=== PATIENT | male | born 1985 | race Two or more races ===

== ENCOUNTER 2022-11-03 19:50 | Emergency (ER) | payer SELFPAY ==
[~2022-11-03] VITALS: Ht 172.7 cm; Wt 68.0 kg
[2022-11-03] MEDS ORDERED: LIDOCAINE HCL 2% 20 ML VIAL TP ONE (20:15)
[2022-11-03] MEDS ORDERED: ONDANSETRON HCL 4 MG TABLET PO ONE (20:15)
[2022-11-03] MEDS ORDERED: TDAP DIPH,PERTUSS,TET VAC/PF 0.5 ML DISP.SYRIN IM ONE ×2 (20:15→20:29)
[2022-11-03] MEDS ORDERED: HYDROMORPHONE 1 MG/1 ML DISP.SYRIN IM ONE (20:15)
[2022-11-03] MEDS ORDERED: LIDOCAINE HCL 2% 20 ML VIAL ONE (20:28)
[2022-11-03] MEDS ORDERED: ONDANSETRON HCL 4 MG TABLET ONE (20:29)
[2022-11-03] MEDS ORDERED: HYDROMORPHONE 2 MG/1 ML DISP.SYRIN ONE (20:29)
[2022-11-03] MEDS ORDERED: HYDR-3980 PO (20:55)
[2022-11-03] MEDS ORDERED: SILVER NITRATE APPLICATOR STICK EACH TP ONE ×2 (21:00→21:17)
[2022-11-03 21:59] VITALS: BP 140/80; O2SAT 97
== END 2022-11-03 21:50 | disposition home or self-care (01) ==
LOC: ER 19:50
DX: S92.322A Displaced fracture of second metatarsal bone, left foot, initial encounter for closed fracture (principal); S92.332A Displaced fracture of third metatarsal bone, left foot, initial encounter for closed fracture; S92.342A Displaced fracture of fourth metatarsal bone, left foot, initial encounter for closed fracture; S91.312A Laceration without foreign body, left foot, initial encounter; Z79.899 Other long term (current) drug therapy; W22.8XXA Striking against or struck by other objects, initial encounter; Y93.89 Activity, other specified; Y92.89 Other specified places as the place of occurrence of the external cause; Y99.8 Other external cause status
CPT/HCPCS: 12004; 29515; 73630; 90471; 90715; 96372; 99284; J1170; J3490; A4663; Q0162